=== PATIENT | male | born 1955 | race Caucasian/White ===

== ENCOUNTER 2025-04-20 13:12 | Inpatient (IN) | payer MEDICARE, OTHER ==
[~2025-04-20] VITALS: Ht 195.6 cm; Wt 94.0 kg
[2025-04-20] MEDS: OXYGEN THERAPY IH SCH (08:00)
[2025-04-20] MEDS ORDERED: APIX5TAB PO (13:46)
[2025-04-20] MEDS ORDERED: FURO40TA6 PO (13:46)
[2025-04-20] MEDS ORDERED: FAMO20 PO (13:46)
[2025-04-20] MEDS ORDERED: OXYB5TAB20 PO (13:46)
[2025-04-20] MEDS ORDERED: LORA0.5T20 PO (13:46)
[2025-04-20] MEDS ORDERED: TAMS0.4C94 PO (13:46)
[2025-04-20] MEDS ORDERED: DIGO125T84 PO (13:46)
[2025-04-20] MEDS ORDERED: CARV12 PO (13:46)
[2025-04-20 14:30] LABS: PLATELET COUNT (AUTO) 183 K/uL (150-450); RED BLOOD CELL COUNT(AUTO) 5.11 MIL/uL (4.50-5.90); RED CELL DISTRIBUTION WIDTH 17.9 % (11.5-14.5); WHITE BLOOD COUNT (AUTO) 5.0 K/uL (4.5-11.0)
[2025-04-20 14:31] LABS: COVID AG,FIA SOURCE NASAL SWAB
[2025-04-20 14:36] LABS: APPEARANCE,URINE CLEAR (CLEAR); GLUCOSE, URINE (UA) NEGATIVE (NEGATIVE); LEUKOCYTE ESTERASE ,URINE NEGATIVE (NEGATIVE); NITRATE,URINE NEGATIVE (NEGATIVE); OCCULT BLOOD,URINE NEGATIVE (NEGATIVE); PH,URINE DRUG SCREEN 6.0 (5.0-8.0); SPECIFIC GRAVITIY, URINE 1.006 (1.003-1.030)
[2025-04-20 14:38] LABS: CALCIUM, TOTAL 8.2 mg/dL (8.8-10.5); CREATININE 1.64 mg/dL (0.60-1.30); GLOMERULAR FILTR. RATE CALC 42 mL/min (>60); GLUCOSE,RANDOM 102 mg/dL (70-110); SODIUM SERUM 138 mmol/L (136-145); UREA NITROGEN, BLOOD 23 mg/dL (7-18)
[2025-04-20 14:44] LABS: ALCOHOL, URINE DRUG SCREEN NEGATIVE (NEGATIVE); AMPHET/METH SCREEN,URINE NEGATIVE (NEGATIVE); BARBITURATE SCREEN, URINE NEGATIVE (NEGATIVE); CANNABINOID SCREEN,URINE NEGATIVE (NEGATIVE); COCAINE SCREEN,URINE NEGATIVE (NEGATIVE); METHADONE SCREEN, URINE NEGATIVE (NEGATIVE)
[2025-04-20 14:47] LABS: TROPONIN I-HIGH SENSITIVITY 111 ng/L (<76)
[2025-04-20 15:03] LABS: SARS-COV2 (COVID) ANTIGEN,FIA Negative (Negative)
[2025-04-20 15:17] LABS: SQUAMOUS EPITHELIAL CELL,UR Rare /LPF (None Seen)
[2025-04-20] MEDS: LORazepam 2 MG/ML VIAL IM ONE (17:45)
[2025-04-20] MEDS ORDERED: NITROGLYCERIN 2% (1 GM=INCH) OINTMENT PACKET TP PRN (18:15)
[2025-04-20] MEDS: FAMOTIDINE 20 MG TABLET PO SCH (18:15)
[2025-04-20] MEDS: DIGOXIN 125 MCG TABLET PO SCH (18:15)
[2025-04-20] MEDS: TAMSULOSIN HCL 0.4 MG CAPSULE PO SCH (18:15)
[2025-04-20] MEDS: FUROSEMIDE 20 MG TABLET PO SCH (18:15)
[2025-04-20] MEDS ORDERED: NITROGLYCERIN 0.4 MG SUBLINGUAL TABLET #25 SL PRN (18:15)
[2025-04-20] MEDS: ASPIRIN 81 MG CHEWABLE TABLET PO SCH (18:15)
[2025-04-20] MEDS ORDERED: ONDANSETRON HCL 4 MG/2 ML VIAL IVP PRN (18:15)
[2025-04-20 20:15] VITALS: BP 108/65; PULSE 55; RESP 17; TEMP 97.5; O2SAT 100
[2025-04-20] MEDS: APIXABAN 5 MG TABLET PO SCH (21:00)
[2025-04-20 22:17] LABS: TROPONIN I-HIGH SENSITIVITY 124 ng/L (<76)
[2025-04-21 00:30] VITALS: BP 104/64; PULSE 53; RESP 18; TEMP 97.3; O2SAT 100
[2025-04-21 03:09] LABS: TROPONIN I-HIGH SENSITIVITY 113 ng/L (<76)
[2025-04-21 04:46] VITALS: BP 107/75; PULSE 79; RESP 17; TEMP 97.9; O2SAT 97
[2025-04-21 07:21] LABS: ASPARTATE AMINOTRANSFERASE 83.0 U/L (15-37); CALCIUM, TOTAL 8.3 mg/dL (8.8-10.5); CHOL/HDL RATIO 3.7 (4.2-7.3); CREATININE 1.37 mg/dL (0.60-1.30); GLOMERULAR FILTR. RATE CALC 51.0 mL/min (>60); GLUCOSE,RANDOM 93.0 mg/dL (70-110); LDL CHOL (CALC.) 97.0 mg/dL (0-130); SODIUM SERUM 138.0 mmol/L (136-145); TOTAL PROTEIN, SERUM 6.9 g/dL (6.4-8.2); UREA NITROGEN, BLOOD 22.0 mg/dL (7-18)
[2025-04-21 07:24] LABS: TROPONIN I-HIGH SENSITIVITY 104 ng/L (<76)
[2025-04-21 07:49] LABS: PLATELET COUNT (AUTO) 160 K/uL (150-450); RED BLOOD CELL COUNT(AUTO) 5.08 MIL/uL (4.50-5.90); RED CELL DISTRIBUTION WIDTH 19.3 % (11.5-14.5); WHITE BLOOD COUNT (AUTO) 6.2 K/uL (4.5-11.0)
[2025-04-21 07:50] LABS: BAND NEUTROPHILS % (MANUAL) 0 % (0-5)
[2025-04-21] MEDS: LACTULOSE 20 GM/30 ML SOLUTION UDCUP PO SCH (09:30)
[2025-04-21 10:00] VITALS: BP 96/59; PULSE 77; RESP 17; TEMP 97.9; O2SAT 99
[2025-04-21 10:25] VITALS: BP 96/63; RESP 17; O2SAT 99
[2025-04-21 11:06] LABS: LYMPHOCYTES % (MANUAL) 6 % (22-44); MONOCYTES % (MANUAL) 21 % (2-9); SEGMENTED NEUTROPHILS % 73 % (40-70)
[2025-04-21 11:07] LABS: RBC MORPHOLOGY COMMENT ABNORMAL RBC MORPH
[2025-04-21 13:54] VITALS: BP 109/72; PULSE 72; RESP 18; TEMP 97.9; O2SAT 97
[2025-04-21 19:45] VITALS: BP 97/68; PULSE 73; RESP 17; TEMP 97.5; O2SAT 98
[2025-04-21 20:12] LABS: TROPONIN I-HIGH SENSITIVITY 86 ng/L (<76)
[2025-04-22 00:05] VITALS: BP 102/63; PULSE 82; RESP 19; TEMP 97.7; O2SAT 99
[2025-04-22 05:28] VITALS: BP 100/64; PULSE 85; RESP 18; TEMP 97.5; O2SAT 99
[2025-04-22 08:00] VITALS: BP 90/65; PULSE 61; RESP 19; TEMP 98.1; O2SAT 100
[2025-04-22] MEDS: ETHYL ALCOHOL 62% ANTISEPTIC NASAL SANITIZER 0.6 ML AMPUL NASAL SCH (09:15)
[2025-04-22] MEDS: LEVOTHYROXINE SODIUM 25 MCG TABLET PO SCH (11:38)
[2025-04-22] MEDS: SODIUM PHOSPHATE,MONO-DIBASIC 133 ML ENEMA PR PRN (11:55)
[2025-04-22 12:00] VITALS: BP 96/61; PULSE 75; RESP 19; TEMP 97.9; O2SAT 98
[2025-04-22 16:00] VITALS: BP_SYST 101; BP_SYST 71; BP_DIAS 64; PULSE 70; RESP 20; TEMP 97.9; O2SAT 100
[2025-04-22 20:00] VITALS: BP 124/79; PULSE 62; RESP 18; TEMP 97.3; O2SAT 100
[2025-04-23] VITALS (9 sets, daily range): BP systolic 79–153; BP diastolic 46–101; PULSE 54–99; RESP 18–19; TEMP 98.2–98.8; O2SAT 92–98
[2025-04-23] MEDS: SODIUM CHLORIDE 0.9% 250 ML IV ONE ×2 (02:25→11:10)
[2025-04-23] MEDS: SODIUM CHLORIDE 0.9% 1,000 ML IV SCH (06:53)
[2025-04-23] MEDS: MIDODRINE HCL 5 MG TABLET PO SCH (08:20)
[2025-04-23 13:10] LABS: CALCIUM, TOTAL 7.7 mg/dL (8.8-10.5); CREATININE 1.06 mg/dL (0.60-1.30); GLOMERULAR FILTR. RATE CALC > 60 mL/min (>60); GLUCOSE,RANDOM 97 mg/dL (70-110); SODIUM SERUM 137 mmol/L (136-145); UREA NITROGEN, BLOOD 21 mg/dL (7-18)
[2025-04-24 04:05] VITALS: BP 96/63; PULSE 86; RESP 18; TEMP 98.2; O2SAT 94
[2025-04-24 06:11] LABS: PLATELET COUNT (AUTO) 167 K/uL (150-450); RED BLOOD CELL COUNT(AUTO) 4.35 MIL/uL (4.50-5.90); RED CELL DISTRIBUTION WIDTH 18.5 % (11.5-14.5); WHITE BLOOD COUNT (AUTO) 4.3 K/uL (4.5-11.0)
[2025-04-24 06:30] LABS: ASPARTATE AMINOTRANSFERASE 58 U/L (15-37); CALCIUM, TOTAL 7.8 mg/dL (8.8-10.5); CREATININE 1.18 mg/dL (0.60-1.30); GLOMERULAR FILTR. RATE CALC > 60 mL/min (>60); GLUCOSE,RANDOM 102 mg/dL (70-110); SODIUM SERUM 139 mmol/L (136-145); TOTAL PROTEIN, SERUM 6.1 g/dL (6.4-8.2); UREA NITROGEN, BLOOD 21 mg/dL (7-18)
[2025-04-24 07:15] VITALS: BP 94/71; PULSE 84; RESP 18; TEMP 98; O2SAT 96
[2025-04-24] MEDS ORDERED: MIDO5TAB29 PO (09:31)
[2025-04-24] MEDS ORDERED: LEVO25TA9 PO (09:31)
[2025-04-24] MEDS ORDERED: NITR0.4T52 SL (09:31)
[2025-04-24 11:31] VITALS: BP 99/71; PULSE 64; RESP 18; TEMP 98; O2SAT 96
[2025-04-24 16:00] VITALS: BP 102/64; PULSE 74; RESP 18; TEMP 98; O2SAT 97
== END 2025-04-24 18:55 | DRG 441 ==
LOC: EMS 13:12 → EDH 15:39 → 5S 20:08
PROVIDERS: ADMIT Family Medicine; ATTEND Family Medicine
DX: K76.82 Hepatic encephalopathy (principal); I21.4 Non-ST elevation (NSTEMI) myocardial infarction; I13.0 Hypertensive heart and chronic kidney disease with heart failure and stage 1 through stage 4 chronic kidney disease, or unspecified chronic kidney disease; I48.20 Chronic atrial fibrillation, unspecified; Z20.822 Contact with and (suspected) exposure to COVID-19; I50.9 Heart failure, unspecified; N18.30 Chronic kidney disease, stage 3 unspecified; F41.9 Anxiety disorder, unspecified; K21.9 Gastro-esophageal reflux disease without esophagitis; E03.9 Hypothyroidism, unspecified; F22 Delusional disorders; I95.9 Hypotension, unspecified; N28.1 Cyst of kidney, acquired; I25.2 Old myocardial infarction; Z79.01 Long term (current) use of anticoagulants; Z86.711 Personal history of pulmonary embolism
CPT/HCPCS: 71045; 76700; 76770; 80048; 80053; 80061; 80074; 80307; 81001; 82140; 83735; 84443; 84484; 85025; 87081; 93005; 93306; 99285; G0480; J1200; J1630; J2060; J7030; J7050; 36415-L1; 36415-TC